=== PATIENT | female | born 1965 ===

== ENCOUNTER → 2024-09-06 09:58 | Outpatient (REF) | payer BC, SELFPAY | LOC: RAD 09:58 | PROVIDERS: ATTENDING PHYSICIAN Internal Medicine Cardiovascular Disease | DX: I49.3 Ventricular premature depolarization (principal); R94.31 Abnormal electrocardiogram [ECG] [EKG]; I10 Essential (primary) hypertension; R07.89 Other chest pain; I48.0 Paroxysmal atrial fibrillation; R00.0 Tachycardia, unspecified; R06.09 Other forms of dyspnea; R00.2 Palpitations; R94.39 Abnormal result of other cardiovascular function study | CPT/HCPCS: 75574; Q9967 ==